=== PATIENT | female | born 1970 | race Caucasian/White ===

== ENCOUNTER 2021-09-08 01:08 | Outpatient (CLI) | payer BC, SELFPAY ==
[2021-09-08 12:57] LABS: Source Nasal/Nares
[2021-09-08 17:42] LABS: COVID-19 PCR Negative (Negative)
== END 2021-09-08 01:09 | disposition home or self-care (01) ==
LOC: LBO 01:08
PROVIDERS: PCP Naturopath; Visit Provider Surgery
DX: Z20.822 Contact with and (suspected) exposure to COVID-19 (principal)
CPT/HCPCS: 87635

== ENCOUNTER 2021-09-11 08:52 | Day surgery (SDC) | payer BC, SELFPAY ==
--- NOTE | 2021-09-11 06:35 | W.COLOREPORT ---
Colonoscopy Report Date of procedure: 09/11/21 Pre-op diagnosis general: Colon Cancer Screening Post-op diagnosis procedure note: same Procedure: Colonoscopy Surgeon: Nydia Vargas Anesthesia Type: General:No Airway Estimated blood loss (mL): 0 Pathology: none sent Complications: None Disposition: same day Indications: The patient is here for her first? Colonoscopy pre-op. She has no family history of colon cancer. Patient describes a history of irritable bowel disease, with her bowel habits frequently changing between diarrhea and constipation. However, since 06/2020 following a laparoscopic hysterectomy she describes having difficulties evacuating a BM. After passing stool she describes tenesmus. Patient has had numerous abdominal surgeries in the past as described above, concern for possible adhesions.? CT scan with contrast from 07/31/2020 did not note any abnormal abdominal findings. Of note a 5mm right lower lobe pulmonary nodule was described. Abdominal US from 06/23/2020 was performed, no acute abnormalities were identified. Patient also previously had a gastric emptying study on 06/03/2020 for early satiety. The impression of this exam was normal gastric emptying. -Discussed colonoscopy bowel prep as well as the procedure. Discussed possible complications of the procedure to include bleeding, pain, perforation, missed small lesion/polyp, sore throat, aspiration and adverse reaction to the medications. Questions were answered to patient?s satisfaction. No guarantees were implied or given.? Prep: Miralax/Dulcolax Procedure Start Time: 11:17 Procedure End Time: 11:37 Retraction Time: 6 minutes Findings: Normal colon Procedure Description: After informed consent was obtained the patient was taken to the procedure room and placed in a left decubitous position. Monitors were applied and a time out was done. The patients name, date of , procedure, allergies to medications and metal in their body was reviewed. The patient was then sedated. Once sedated and comfortable a rectal exam was done. External exam was normal. Internal exam revealed a normal sphincter tone and no palpable masses. The scope was then introduced and retro-flexed. No internal hemorrhoids, polyps or masses were identified on retro-flexion. The scope was then advanced to the cecum with some difficulty due to a tortuous colon. The ileocecal vlave and appendiceal orifice were identified. The prep was good. The scope was then slowly retracted over 6 minutes back into the rectum. There were no polyps and no diverticulosis noted. The scope was removed and the patient was woken up and taken back to Same day surgery in stable condition. The patient tolerated the procedure well and there were no immediate complications. Follow up: The patient should follow up in 10 years unless they develop changes in bowel habits or other new gastrointestinal complaints.
--- NOTE | 2021-09-11 06:37 | PDOC.DSDIS_ITS ---
Discharge Plan Disposition Patient Disposition: HOME Condition: Good Discharge Details Reason For Visit: Colonoscopy Attending Provider: Nydia Vargas Primary Care Provider: Brian Melendez Home Meds and New Rx's Prescriptions: Continued cholecalciferol (vitamin D3) 125 mcg (5,000 unit) capsule 125 mcg PO DAILY 0RF ascorbic acid (vitamin C) 500 mg capsule 500 mg PO DAILY 0RF vitamin K2 45 mcg capsule 45 mcg PO DAILY 0RF naltrexone 4.5 mg capsule 1.5 mg PO HS 0RF Label Comments: Medication prescribed by Payton Desai from [facility]. 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] 60 mg tablet 60 mg PO DAILY 0RF Label Comments: 09/01/21 patient currently reports she is taking this dose.SRAVANTHI Yin Rx Instructions: dosage decrease Discontinued polyethylene glycol 3350 17 gram/dose powder 238 g PO ONCE Qty: 238 0RF Rx Instructions: take per colonoscopy instructions bisacodyl [Dulcolax (bisacodyl)] 5 mg tablet,delayed release (DR/EC) 5 mg PO ONCE Qty: 4 0RF Rx Instructions: take per colonoscopy instructions Discharge Instructions Additional Instructions: Findings: Normal colonoscopy Follow up: 10 years Please call if you develop: fevers >101.5 Nausea or Vomiting Abdominal pain that is not transient Rectal bleeding that is more then a tbsp A hard abdomen and inability to pass gas DAY SURGERY UNIT POST ENDOSCOPY INSTRUCTIONS Instructions for everyone who is given Anesthesia: For your safety, please do the following for the next 24 Hours: a. Do not drive or operate dangerous equipment b. Do not drink alcohol beverages or use any recreational drugs for the first 24 hours or while taking pain medications. The medications in your body may have a reaction that can be dangerous. c. Do not make any important decisions or sign any important papers 1. Generally there are no restrictions on your activity after a day or so has gone by, but you may feel a bit fatigued for a few days. 2. After you arrive home you may have a light meal and return to a normal diet as you can tolerate it without feeling sick to your stomach. 3. After surgery, you may feel pain or discomfort. This should be only transient, but if it persists please contact your doctor. 4. If there are any questions regarding the findings of your procedure, please feel free to contact your doctor. 6. If you are unable to contact your doctor with a problem, contact the hospital at [phone]. 7. Continue all your regular medications unless directed otherwise. I understand the above instructions and have no questions. Signature of Patient or Responsible Adult Escort Date/Time Name of Responsible Adult Escort Signature of Nurse Date/Time Activity:: Activity as Tolerated Diet:: As Tolerated Discharge Orders Discharge Orders: Discharge Order (Routine); Ordered 09/11/21 Ordered By: Nydia Vargas
[2021-09-11 08:55] VITALS: BP 113/81; PULSE 89; RESP 16; TEMP 36.4; O2SAT 99
[2021-09-11] MEDS: Lactated Ringers 1,000 ML 80 ML IV (09:50)
--- NOTE | 2021-09-11 11:09 | ANES.PREOP_ITS ---
General Info Date of Service Date Performed: 09/11/21 Height: 5 ft 2 in Weight: 63.3 kg Body Mass Index (BMI): 25.5 Surgical Procedure: Operation Date: 09/11/21 10:35 Proposed Procedure Side Surgeon p Radha Vargas MD Meds Allergies and Home Medications Allergies Allergy/AdvReac Type Severity Reaction Status Date / Time amoxicillin Allergy Severe I makes Verified 09/11/21 08:32 any virus I have stronger flavoxate [From [facility]] Allergy Severe Hives, SOB Verified 09/11/21 08:32 Home Medication Medication Instructions Recorded albuterol sulfate 90 mcg/actuation 2 puff INHALATION BID PRN g 08/29/21 aerosol inhaler fluticasone propionate 110 2 puff INHALATION BID PRN 08/29/21 mcg/actuation HFA aerosol inhaler (Flovent HFA) ascorbic acid (vitamin C) 500 mg 500 mg PO DAILY 09/01/21 capsule bisacodyl 5 mg tablet,delayed 5 mg PO ONCE #4 tab 09/01/21 release (Dulcolax (bisacodyl)) cholecalciferol (vitamin D3) 125 125 mcg PO DAILY 09/01/21 mcg (5,000 unit) capsule naltrexone 1.5 mg PO HS 09/01/21 polyethylene glycol 3350 17 238 g PO ONCE #238 g 09/01/21 gram/dose oral powder thyroid (pork) 60 mg tablet ([employer] 60 mg PO DAILY 09/01/21 Thyroid) vitamin K2 45 mcg capsule 45 mcg PO DAILY 09/01/21 Current Visit Medications: Current Medications Generic Name Dose Route Start Last Admin Trade Name Freq PRN Reason Stop Dose Admin Hyoscyamine Sulfate 0.125 mg 09/11/21 06:37 Hyoscyamine 0.125 Mg Sl/Oral/Chew SL DIRECTED PRN Ringer's Solution 1,000 mls @ 80 mls/hr 09/11/21 06:00 09/11/21 09:50 IV 10/08/21 23:59 80 mls/hr INFUSION CLAU Administration IV Miscellaneous Supplies 1 each 09/11/21 06:00 Iv Access IV 10/08/21 23:59 DIRECTED CLAU Ondansetron HCl 4 mg 09/11/21 06:37 Ondansetron 4 Mg/2 Ml Vial IVP Q4H PRN PRN Nausea / Vomiting Sodium Chloride 0 ml 09/11/21 06:00 Normal Saline Flush 10 Ml Syr IV 10/08/21 23:59 PRN PRN Sodium Chloride 0 ml 09/11/21 06:00 Normal Saline 10 Ml Vial IJ 10/08/21 23:59 DIRECTED PRN Sterile Water 0 ml 09/11/21 06:00 Water,Injection,Sterile 10 Ml Vial IJ 10/08/21 23:59 DIRECTED PRN PFSH Active Problems Active Problems: Problem Status Onset Code Iron deficiency anemia D50.9 Screening for colon cancer Z12.11 Medical History Medical History Adult attention deficit disorder Anxiety Chronic interstitial cystitis Chronic sinusitis Daytime somnolence Fibromyalgia longstanding. manifests as N/V. Benito's thyroiditis pt. states she has swings from hyperthyroid to hypothyroid Hormone replacement therapy Rx by Dr. Velasquez. Hot flashes 07/2020. Solitary ovary remained after LAVH. Hyperthyroidism subclinical. Onset 2017. Insomnia Irritable bowel syndrome with diarrhea Lung nodule Obstructive sleep apnea syndrome in adult 01/2020 settings scanned into EMR with [facility] records. Palpitations Perimenopausal Posttraumatic stress disorder Surgical History Surgical History H/O breast biopsy 1999. Benign. H/O cystoscopy 1997,1998,1999 H/O laparoscopy 1998, Diagnostic for endometriosis H/O rhinoplasty History of delivery 1997,1996. S/P laparoscopic hysterectomy 07/13/20. bilateral salpingectomy, R oophorectomy, uterosacral vaginal vault suspension. Tobacco Smoking/Tobacco Use Status: Former Tobacco Use Alcohol Alcohol Intake: never Substance Use Substance use type: does not use Prental History History 2 Para 2 Hx # Term Pregnancies 2 Multiple births Hx # Pregnancies Ectopic pregnancies AB induced Hx Number of Living Children 2 AB spontaneous Vital Signs and Lab Results Vital Signs Most Recent Vital Signs in EMR: Most Recent Vital Signs Temp Pulse Resp BP Pulse Ox 36.4 C L 89 16 113/81 99 09/11/21 08:55 09/11/21 08:55 09/11/21 08:55 09/11/21 08:55 09/11/21 08:55 Lab Results Blood Type / Crossmatch: No Data to Display Complete Blood Count: No Data to Display Complete Metabolic Panel: No Data to Display Liver Function Panel: No Data to Display Coagulation Panel: No Data to Display Cardiac Panel: No Data to Display Arterial Blood Gas: No Data to Display Venous Blood Gas: No Data to Display Pancreas Panel: No Data to Display Thyroid Panel: No Data to Display Infectious Disease: Coronavirus (COVID-19)(PCR) Negative (Negative) 09/08/21 09:37 09/08/21 Coronavirus 2019 Source Nasal/Nares 09/08/21 09:37 09/08/21 Blood Cultures: No Data to Display Toxicology Panel: No Data to Display Panel: No Data to Display Anesthesia Assessment and Plan Anesthesia History Personal History: PONV Family History: No Family History of Anesthesia Complications Exercise Tolerance Exercise Tolerance: Metabolic Equivalents>4 Pertinent Negatives Pertinent Negatives: No Symptoms of GERD Cardiac & Pulmonary Exam Cardiac Exam: Normal S1/S2 Heart Sounds Pulmonary Exam: Clear Bilateral Breath Sounds Implantable Cardiac Device Does patient have a Pacemaker or an ICD?: No Airway Exam Known Difficult Airway: No Mallampati Class: 2 Mouth Opening: Normal (> 3cm) Thyromental Distance: Greater than 3 cm Neck Range of Motion: Full ROM Neck Circumference: Normal Teeth Condition: Normal Dentition ASA Classification ASA Score: ASA 3 Emergency Case?: No NPO Status NPO Status: NPO Clears >2 hours, Solids >8 hours Status Status: Negative HCG Anesthesia Plan Resuscitation Status: Full Code Anesthesia Technique: General Anesthesia Airway Planned: Natural Airway Monitors Used: Standard Monitors
[2021-09-11 11:11] VITALS: BMI 25.5
[2021-09-11 11:45] VITALS: BP 95/49; PULSE 74; RESP 14; TEMP 36.5; O2SAT 99
--- NOTE | 2021-09-11 15:14 | W.ANESPOSTOP ---
Postoperative Evaluation Date, Time and Location Date Performed: 09/11/21 Time Performed: 11:45 Patient Location: Day Surgery Unit Vital Signs Most Recent Imported Vital Signs: Most Recent Vital Signs Temp Pulse Resp BP Pulse Ox 36.5 C 74 14 95/49 L 99 09/11/21 11:45 09/11/21 11:45 09/11/21 11:45 09/11/21 11:45 09/11/21 11:45 Pain Score Most Recent Pain Score: Most Recent Pain Score Pain Level 0 09/11/21 11:45 Assessment Mental Status: Awake (Alert & Oriented to Patient Baseline) Airway and Respiratory Function: Patent airway with normal (patient baseline) respiratory exam Cardiovascular Function: Hemodynamically Stable Hydration Status: Adequately Hydrated Nausea & Vomiting: No Nausea or Vomiting Pain: Pt. Denies Any Pain Peripheral Nerve Block: Patient did not receive a nerve block Postoperative Comments:: Seen earlier in DSU
== END 2021-09-11 12:37 | disposition home or self-care (01) ==
LOC: SUR 08:53
PROVIDERS: PCP Naturopath; Visit Provider Surgery
PROC: 0DJD8ZZ Inspection of Lower Intestinal Tract, Via Natural or Artificial Opening Endoscopic (ICD-10-PCS; CPT 45378; principal; 2021-09-11 10:30)
DX: Z12.11 Encounter for screening for malignant neoplasm of colon (principal); D50.9 Iron deficiency anemia, unspecified; M79.7 Fibromyalgia; K58.2 Mixed irritable bowel syndrome
CPT/HCPCS: 45378; J2405

== ENCOUNTER 2023-03-12 04:32 | Outpatient (CLI) | payer BC, SELFPAY ==
[2023-03-13 19:17] LABS: Estradiol 22 pg/mL (See Note); Progesterone 0.3 ng/mL (See Table)
[2023-03-13 21:51] LABS: FSH 37.8 mIU/mL (See Note)
[2023-03-16 13:39] LABS: Testosterone, Total 18 ng/dL (8-60)
== END 2023-03-12 04:33 | disposition home or self-care (01) ==
PROVIDERS: PCP Naturopath; Visit Provider Naturopath
DX: N95.1 Menopausal and female climacteric states (principal)
CPT/HCPCS: 36415; 84403; 82670; 83001; 84144

== ENCOUNTER → 2023-04-17 01:22 | Outpatient (CLI) | payer BC, SELFPAY ==
--- NOTE | 2023-04-17 17:00 | DI.MAMMO_ITS ---
Exam(s) MAMMO SCREENING EXAM: MAMMO SCREENING CLINICAL HISTORY: screening TECHNIQUE: Bilateral full field digital CC and MLO mammographic images were obtained with 3D tomosyn thesis and utilizing computer aided detection (CAD). COMPARISON: Available for comparison. FINDINGS: Masses/Architectural Distortion: There is a 6 mm nodule in the outer right breast on the craniocaudad view. No suspicious areas of architectural distortion are seen. Microcalcifications: No suspicious pleomorphic-type are seen. Skin Thickening/Nipple Retraction: None. IMPRESSION: 1. 6 mm nodule in the outer right breast on the craniocaudad view. 2. Further evaluation with a spot compression view and a limited right breast ultrasound are recommen ded. BI-RADS Category 0 - Assessment Incomplete: Need additional imaging evaluation Breast Density - Category B - Scattered areas of fibroglandular density Breast density category C or D implies that the patient has dense breast tissue. Dense breast tissue is very common and is not abnormal but dense breast tissue can make it harder to find cancer on a ma mmogram. Also, dense breast tissue may increase their breast cancer risk. This information about the result of the mammogram report was provided to the patient to raise their awareness. Use this report when you speak with the patient about their risks for breast cancer, which includes their family hist ory. At that time, you may recommend for more screening tests (Ultrasound or MRI) as they might be us eful based on their risk. A negative radiographic report should not delay biopsy if a dominant or clinically suspicious mass is present. Up to ten percent of cancers are not identified on mammography. A negative report may reinforce clinical impression. Adenosis and dense breasts may obscure an underlying neoplasm. False positive reports average 6 to 10%. Patient will receive a letter notifying them of these results.
== END ==
PROVIDERS: PCP Naturopath; Visit Provider Obstetrics & Gynecology Gynecology
DX: Z12.31 Encounter for screening mammogram for malignant neoplasm of breast (principal); N63.13 Unspecified lump in the right breast, lower outer quadrant
CPT/HCPCS: 77063; 77067

== ENCOUNTER → 2023-04-29 04:00 | Outpatient (CLI) | payer BC, SELFPAY ==
--- NOTE | 2023-04-29 | DI.MAMMO_ITS ---
Exam(s) MG MAMMO SCREEN CALL BACK UNI US BREAST RT LIMITED EXAM: MG MAMMO SCREEN CALL BACK UNI CLINICAL HISTORY: F/U MAMMO, 6 MM NODULE RT BREAST. TECHNIQUE: Craniocaudal and mediolateral oblique spot compression digital Mammography views of the r ightbreast with Tomosynthesis and right breast ultrasound. COMPARISON: MG MG MAMMO STACEY SCREENING BILAT-M2 from 04/05/2017 MG MG MAMMO STACEY DIAGNOSTIC LT-M2 from 04/10/2017 MG MG MAMMO STACEY DIAGNOSTIC LT-M2 from 11/08/2017 MG MG MAMMO STACEY DIAGNOSTIC BILAT-M2 from 10/08/2018 MG MG MAMMO STACEY SCREENING BILAT-M2 from 06/14/2020 MG MG MAMMO STACEY SCREENING BILAT-M2 from 07/17/2021 MG MG MAMMO SCREENING from 04/17/2023 US US BREAST RT LIMITED from 04/29/2023 FINDINGS: Mammography/Tomosynthesis: Masses/Architectural Distortion: Small circumscribed nodule lateral central right breast. Microcalcifictions: No suspicious pleomorphic-type are seen. Skin Thickening/Nipple Retraction: None. Right breast US: Echotexture: Normal appearance of the glandular tissue. Shadowing: No suspicious foci. Cyst: 5 by 5 x 3 millimeter cyst 9 o'clock position 3 cm from the nipple. Adjacent 6 x [address] cyst. Solid lesions: None seen. Ductal dilation: None. IMPRESSION: 1. No evidence of malignancy is noted. 2. Unless there is more urgent need, follow-up screening mammography is recommended, as per [place] [employer] guidelines. 3. The findings were discussed with the patient on the date of the examination. BI-RADS Category 2 - Benign Findings Breast Density - Category B - Scattered areas of fibroglandular density A negative radiographic report should not delay biopsy if a dominant or clinically suspicious mass is present. Up to ten percent of cancers are not identified on mammography. A negative report may reinforce clinical impression. Adenosis and dense breasts may obscure an underlying neoplasm. False positive reports average 6 to 10%. Patient will receive a letter notifying them of these results.
== END ==
PROVIDERS: PCP Naturopath; Visit Provider Obstetrics & Gynecology Gynecology
DX: Z12.31 Encounter for screening mammogram for malignant neoplasm of breast (principal); N63.15 Unspecified lump in the right breast, overlapping quadrants
CPT/HCPCS: 76642; 77063; 77067

== ENCOUNTER 2023-06-12 10:30 | Outpatient (REF) | payer BC, SELFPAY ==
--- OUTSIDE RECORDS SUMMARY | 2023-06-12 10:32 | XMS_ITS | Continuity of Care Document ---
Author Name Unknown Organization [facility] Address [address] [place] [address] Care Team Providers Care Bridge Instructor Name Role Phone Cisco Zhu Primary Care Physician Encounter REPLACED BY [facility] [id number] Date(s): 06/18/22 - 06/18/[address] [address] Discharge Disposition: Home or Self Care Attending Physician: Brian Melendez ND Admitting Physician: Brian Melendez ND Referring Physician: Brian Melendez ND Allergies, Adverse Reactions, Alerts Substance Reaction Severity Status amoxicillin Other Unknown Active flavoxATE Urticaria Unknown Active Assessment and Plan Diagnostic Tests Pending * Carol-Kohli Virus Profile, Reyna MALCOLM 06/18/22 Immunizations Given and Recorded Vaccine Date Status Refusal Reason tetanus/diphth/pertuss (Tdap) adult/adol 07/22/09 Recorded Results Laboratory List Name Date T3, Free [facility] 06/18/22 T4 06/18/22 Thyroid Stimulating Hormone 06/18/22 Most recent to oldest [Reference Range]: 1 T4 [4.7-13.3 mcg/dL] 8.6 mcg/dL (06/18/22 4:04 PM) TSH [0.358-3.740 mcIntlUnit/mL] 1.658 mc IntlUnit/mL (06/18/22 4:04 PM) T3, Free [facility] [2.8-5.3 pg/mL] 3.2 pg/mL 1 *NA* (06/18/22 4:04 PM) 1Result Comment: Test performed or referred by The [address] [address] Social History Social History Type Response Sex Female Patient Care team information Personnel Name: Cisco Zhu MD Address: Address: [address] [address]- [place]
--- OUTSIDE RECORDS SUMMARY | 2023-06-12 10:32 | XMS_ITS | Continuity of Care Document ---
Author Name Unknown Organization [facility] Address [address] [place] [address] Care Team Providers Care Suction Plate Roller Hand Name Role Phone Cisco Zhu Primary Care Physician Encounter [facility] [id number] Date(s): 04/22/23 - 04/22/[address] [address] Discharge Disposition: Home or Self Care Attending Physician: Lynsey Miguel MD Admitting Physician: Lynsey Miguel MD Referring Physician: Lynsey Miguel MD Allergies, Adverse Reactions, Alerts Substance Reaction Severity Status amoxicillin Other Unknown Active flavoxATE Urticaria Unknown Active Immunizations Given and Recorded Vaccine Date Status Refusal Reason tetanus/diphth/pertuss (Tdap) adult/adol 07/22/09 Recorded Medications albuterol 0 Refill(s) Start Date: 07/11/22 Status: Ordered Problem List Condition Confirmation Course Effective Dates Status Health St atus Informant Head pain Confirmed Active Palpitations Confirmed Active Results Laboratory List Name Date Automated Diff 04/22/23 CBC w/ Diff 04/22/23 Comprehensive Metabolic Panel (CMP) 04/22 Magnesium Level 04/22/23 TSH w/ Rflx to Free T4 04/22/23 Troponin-I 04/22/23 Vitamin B12 Level 04/22/23 Most recent to oldest [Reference Range]: 1 WBC [5.0-10.0 x10^3/mcL] 7.8 x10^3/mcL (04/22/23 2:25 PM) RBC [4.1-5.3 x10^6/mcL] 4.5 x10^6/mcL (04/22/23 2:25 PM) Neutro Auto [40.0-75.0 %] 60.1 % (04/22/23 2:25 PM) Lymph Auto [20.0-50.0 %] 32.7 % (04/22/23 2:25 PM) [place] Auto [2.0-15.0 %] 4.0 % (04/22/23 2:25 PM) Basophil Auto [0.0-1.0 %] 0.9 % (04/22/23 2:25 PM) BUN [7-18 mg/dL] 15 mg/dL (04/22/23 2:25 PM) Glucose Level [74-106 mg/dL] 83 mg/dL (04/22/23 2:25 PM) Potassium Level [3.5-5.1 mmol/L] 4.1 mmo l/L (04/22/23 2:25 PM) MCV [80.0-96.0 fL] 92.1 fL (04/22/23 2:25 PM) AST [15-37 unit/L] 14 unit/L *LOW* (04/22/23 2:25 PM) ALT [14-59 unit/L] 25 unit/L (04/22/23 2:25 PM) MCHC [31.0-35.0 g/dL] 32.4 g/dL (04/22/23 2:25 PM) Troponin-I [0.0-51.4 pg/mL] <5.0 pg/mL (04/22/23 2:25 PM) Sodium Level [136-145 mmol/L] 139 mmol/L (04/22/23 2:25 PM) Hct [37.0-47.0 %] 41.7 % (04/22/23 2:25 PM) Calcium Level [8.5-10.1 mg/dL] 9.1 mg/dL (04/22/23 2:25 PM) Albumin Level [3.4-5.0 g/dL] 3.7 g/dL (04/22/23 2:25 PM) Protein Total [6.4-8.2 g/dL] 7.6 g/dL (04/22/23 2:25 PM) MCH [26.0-32.0 pg] 29.8 pg (04/22/23 2:25 PM) Magnesium Level [1.8-2.4 mg/dL] 1.8 mg/d L (04/22/23 2:25 PM) Neutro Absolute 4.7 x10^3/mcL *NA* (04/22/23 2:25 PM) Bilirubin Total [0.2-1.0 mg/dL] 0.2 mg/d L (04/22/23 2:25 PM) Hgb [12.0-16.0 g/dL] 13.5 g/dL (04/22/23 2:25 PM) B12 Level [193-986 pg/mL] 511 pg/mL (04/22/23 2:25 PM) Alk Phos [46-146 unit/L] 66 unit/L (04/22/23 2:25 PM) Platelets [130-450 x10^3/mcL] 328 x10^3/ mcL (04/22/23 2:25 PM) CO2 [21-32 mmol/L] 29 mmol/L (04/22/23 2:25 PM) TSH [0.358-3.740 mcIntlUnit/mL] 0.976 mc IntlUnit/mL (04/22/23 2:25 PM) eGFR Non-AA [>=60] 103 (04/22/23 2:25 PM) eGFR AA [>=60] 103 (04/22/23 2:25 PM) Chloride Level [98-107 mmol/L] 103 mmol/ L (04/22/23 2:25 PM) RDW-CV [11.5-14.5 %] 13.3 % (04/22/23 2:25 PM) Imm Gran Auto [0.0-0.9 %] 0.1 % (04/22/23 2:25 PM) Creatinine Level [0.55-1.02 mg/dL] 0.71 mg/dL (04/22/23 2:25 PM) Eos, Auto [1.0-6.0 %] 2.2 % (04/22/23 2:25 PM) Social History Social History Type Response Tobacco Never tobacco user T obacco Use:. Sex Female Patient Care team information Care Team Personnel Name: Cisco Zhu MD Position: Physician Member Role: Primary Care Physician Address: Address: [address] [address]- Care Team Related Persons Name: BENITO PASTOR
--- OUTSIDE RECORDS SUMMARY | 2023-06-12 10:32 | XMS_ITS | Continuity of Care Document ---
Author Name Unknown Organization [facility] Address [address] [place] [address] Care Team Providers Care Fire Support Specialist Name Role Phone Cisco Zhu Primary Care Physician Encounter [facility] [id number] Date(s): 05/03/23 - 05/03/[address] [address] Encounter Diagnosis Heart palpitations(Discharge Diagnosis) - 05/03/23 Discharge Disposition: Home or Self Care Attending [...] Head pain Confirmed Active Palpitations Confirmed Active Social History Social History Type Response Tobacco Never tobacco user T obacco Use:. Sex Female Ambulatory cardiac rhythm monitor (Holter) study * Dara Anaya M: PERFORM Event Display: Holter Monitor Authored Date: [id number] XIOMARA JEROME 1970 [id number] Patient placed on Holter Monitor 48 Hourson 05/03/2023 by Joaquina Edward RRT. Electronically Signed on 05/03/23 03:41 PM Dara Anaya Patient Care team information Care Team Personnel Name: Cisco Zhu MD Position: Physician Member Role: Primary Care Physician Address: Address: [place] [address]- Care Team Related Persons Name: BENITO PASTOR
--- OUTSIDE RECORDS SUMMARY | 2023-06-12 10:33 | XMS_ITS | Continuity of Care Document ---
Author Name Unknown Organization [facility] Address [address] [place] [address] Care Team Providers Care Marketing Specialist Name Role Phone Cisco Zhu Primary Care Physician [phone] Encounter [facility] [id number] Date(s): 07/11/22 - 07/11/[address] [address] Encounter Diagnosis Shortness of breath(Discharge Diagnosis) - 07/11/22 Discharge Disposition: Home or Self Care Attending Physician: Sabina De La Garza MD Admitting Physician: Sabina De La Garza MD Allergies, Adverse Reactions, Alerts Substance Reaction Severity Status amoxicillin Other Unknown Active flavoxATE Urticaria Unknown Active Functional Status 07/11/22 Family Member Travel History No recent t ravel Recent Travel History No recent travel Other exposure to Infectious Disease Non e Immunizations Given and Recorded Vaccine Date Status Refusal Reason tetanus/diphth/pertuss (Tdap) adult/adol 07/22/09 Recorded Medications Advair Diskus 100 mcg-50 mcg inhalation powder 0 Refill(s) Start Date: 07/11/22 Status: Ordered albuterol 0 Refill(s) Start Date: 07/11/22 Status: Ordered predniSONE 10 mg oral tablet 50 mg = 5 tab, Oral, Daily, # 20 tab, 0 Refill(s), Pharmacy: [id number], 157, cm, 07/11/22 15:51:00 EST, Height/Length Dosing, 70, kg, 07/11/22 15:51:00 EST, Weight Dosing Start Date: 07/12/22 Stop Date: 07/16/22 Status: Ordered Results Laboratory List Name Date CBC w/ Diff 07/11/22 Comprehensive Metabolic Panel 07/11/22 D-Dimer 07/11/22 NT- Pro BNP 07/11/22 Troponin-I 07/11/22 Free T4 07/11/22 Automated Diff 07/11/22 Most recent to oldest [Reference Range]: 1 WBC [5.0-10.0 x10^3/mcL] 8.1 x10^3/mcL (07/11/22 4:24 PM) RBC [4.1-5.3 x10^6/mcL] 4.2 x10^6/mcL (07/11/22 4:24 PM) Neutro Auto [40.0-75.0 %] 58.6 % (07/11/22 4:24 PM) Lymph Auto [20.0-50.0 %] 32.7 % (07/11/22 4:24 PM) [place] Auto [2.0-15.0 %] 5.9 % (07/11/22 4:24 PM) Basophil Auto [0.0-1.0 %] 0.7 % (07/11/22 4:24 PM) BUN [7-18 mg/dL] 8 mg/dL (07/11/22 4:24 PM) Glucose Level [74-106 mg/dL] 78 mg/dL (07/11/22 4:24 PM) Potassium Level [3.5-5.1 mmol/L] 3.4 mmo l/L *LOW* (07/11/22 4:24 PM) MCV [80.0-96.0] 93.6 (07/11/22 4:24 PM) T4 Free [0.76-1.46 ng/dL] 0.85 ng/dL (07/11/22 4:24 PM) AST [15-37 unit/L] 21 unit/L (07/11/22 4:24 PM) ALT [14-59 unit/L] 18 unit/L (07/11/22 4:24 PM) MCHC [31.0-35.0 g/dL] 33.1 g/dL (07/11/22 4:24 PM) Troponin-I [0.0-51.4 pg/mL] 5.2 pg/mL (07/11/22 4:24 PM) Sodium Level [136-145 mmol/L] 140 mmol/L (07/11/22 4:24 PM) Hct [37.0-47.0 %] 39.6 % (07/11/22 4:24 PM) Calcium Level [8.5-10.1 mg/dL] 9.0 mg/dL (07/11/22 4:24 PM) Albumin Level [3.4-5.0 g/dL] 3.9 g/dL (07/11/22 4:24 PM) Protein Total [6.4-8.2 g/dL] 7.8 g/dL (07/11/22 4:24 PM) MCH [26.0-32.0 pg] 31.0 pg (07/11/22 4:24 PM) Neutro Absolute 4.7 x10^3/mcL *NA* (07/11/22 4:24 PM) Bilirubin Total [0.2-1.0 mg/dL] 0.3 mg/d L (07/11/22 4:24 PM) Hgb [12.0-16.0 g/dL] 13.1 g/dL (07/11/22 4:24 PM) Alk Phos [46-146 unit/L] 85 unit/L (07/11/22 4:24 PM) Platelets [130-450 x10^3/mcL] 269 x10^3/ mcL (07/11/22 4:24 PM) CO2 [21-32 mmol/L] 29 mmol/L (07/11/22 4:24 PM) eGFR Non-AA [>=60] 85 (07/11/22 4:24 PM) eGFR AA [>=60] 85 (07/11/22 4:24 PM) NT-proBNP [0-125 pg/mL] 185 pg/mL *HI* (07/11/22 4:24 PM) Chloride Level [98-107 mmol/L] 103 mmol/ L (07/11/22 4:24 PM) RDW-CV [11.7-17.0 %] 13.2 % (07/11/22 4:24 PM) Imm Gran Auto [0.0-0.9 %] 0.2 % (07/11/22 4:24 PM) Creatinine Level [0.55-1.02 mg/dL] 0.84 mg/dL (07/11/22 4:24 PM) D Dimer, (Quant.) [0.00-0.50 mg/L] 0.69 mg/L *HI* (07/11/22 4:24 PM) Eos, Auto [1.0-6.0 %] 1.9 % (07/11/22 4:24 PM) Vital Signs Most recent to oldest [Reference Range]: 1 2 Temperature Temporal Artery [36-38 Deg C ] 36.3 Deg C (07/11/22 3:44 PM) Peripheral Pulse Rate [60-100 bpm] 77 bp m (07/11/22 7:26 PM) 100 bpm (07/11/22 3:44 PM) Respiratory Rate [12-24 br/min] 16 br/mi n (07/11/22 7:26 PM) 20 br/min (07/11/22 3:44 PM) Blood Pressure [90-140/60-90 mmHg] 124/9 1mmHg (07/11/22 7:26 PM) 141/87mmHg *HI* (07/11/22 3:44 PM) Weight Dosing 70.00 kg (07/11/22 3:51 PM) Weight Estimated 70.00 kg (07/11/22 3:44 PM) Height/Length Dosing 157.000 cm (07/11/22 3:51 PM) Height/Length Estimated 157.000 cm (07/11/22 3:44 PM) Social History Social History Type Response Tobacco Never tobacco user T obacco Use:. Sex Female Hospital Discharge Instructions Patient Education 07/11/2022 18:08:51 Shortness of Breath, Adult Shortness of Breath, Adult Shortness of breath is when a person has trouble breathing enough air or when a person feels like she or he is having trouble breathing in enough air. Shortness of breath could be a sign of a medicalproblem. Follow these instructions at home: ??? Pay attention to any changes in your symptoms. ??? Do not use any products that contain nicotine or tobacco, such as cigarettes, e-cigarettes, andchewing tobacco. ??? Do not smoke. Smoking is a common cause of shortness of breath. If you need help quitting, ask your health care provider. ??? Avoid things that can irritate your airways, such as: ??? Mold. ??? Dust. ??? Air pollution. ??? Chemical fumes. ??? Things that can cause allergy symptoms (allergens), if you have allergies. ??? Keep your living space clean and free of mold and dust. ??? Rest as needed. Slowly return to your usual activities. ??? Take yntd-ppl-pztecdr and prescription medicines only as told by your health care provider. This includes oxygen therapy and inhaled medicines. ??? Keep all follow-up visits as told by your health care provider. This is important. Contact a health care provider if: ??? Your condition does not improve as soon as expected. ??? You have a hard time doing your normal activities, even after you rest. ??? You have new symptoms. Get help right away if: ??? Your shortness of breath gets worse. ??? You have shortness of breath when you are resting. ??? You feel light-headed or you faint. ??? You have a cough that is not controlled with medicines. ??? You cough up blood. ??? You have pain with breathing. ??? You have pain in your chest, arms, shoulders, or abdomen. ??? You have a fever. ??? You cannot walk up stairs or exercise the way that you normally do. These symptoms may represent a serious problem that is an emergency. Do not wait to see if the symptoms will go away. Get medical help right away. Call your local emergency services (911 in the [place] Do not drive yourself to the hospital. Summary ??? Shortness of breath is when a person has trouble breathing enough air. It can be a sign of a medical problem. ??? Avoid things that irritate your lungs, such as smoking, pollution, mold, and dust. ??? Pay attention to changes in your symptoms and contact your health care provider if you have a hard time completing daily activities because of shortness of breath. This information is not intended to replace advice given to you by your health care provider. Make sure you discuss any questions you have with your health care provider. Document Revised: 12/08/2018 Document Reviewed: 12/08/2018 [employer] Patient Education ?? 2021 [employer]. Follow Up Care 07/11/2022 15:43:58 With:Cisco Zhu MD Address: [facility] [address] [address]- When:1 week Emergency department Discharge instructions * Crotez Lamar MD: PERFORM Event Display: ED Discharge Information Authored Date: XIOMARA JEROME :1970 Age:52 years Sex:Female Visit Date:07/11/2022 Primary Care Physician: Cisco Zhu MD Discharge Instructions We would like to thank you for allowing us to assist you with your healthcare needs. The following includes patient education materials and information regarding your injury/illness. Diagnosis from Today's Visit Shortness of breath Discharge Vitals Temperature??(Temporal Artery) 97.3 ??F (36.3 ??C) Heart Rate??(Peripheral) 100 Respiratory Rate?? 20 Blood Pressure?? 141/87?? Height?? 61.81 in (157.000 cm) Weight??(Estimated) 154.35 lb (70.00 kg) Allergies amoxicillin??(Other) flavoxATE??(Urticaria) What to Do Next Instructions from Your Care Team Thank you??for coming to the emergency department today, it has been a pleasure to take care of you.?? Your CT scan was generally reassuring???the radiologist did not see signs of a residual pneumonia or blood clot in the lungs.?? They did see some very small lymph nodes in your left axilla/armpit that would recommend follow-up with your primary care physician for.?? Your??blood work looking for s igns of heart attack or heart failure were generally reassuring.?? Your cell counts and kidney function??were normal and your thyroid test was also within normal limits.?? We would recommend continuing your??medications as prescribed and we will try a prednisone burst for you??to help treat any residual asthma component to this. ??Please follow-up with your primary care doctor within the next week or so to ensure that you are improving??and return to the emergency department if you have any newor concerning symptoms including any??trouble breathing,??new chest pain, fever, abdominal pain, orany other symptoms or concern you. You Need to Schedule the Following Appointments Follow Up with??Cisco Zhu MD When:??Within 1 week Where: [facility] [address] [place] [address]- You were treated today on an emergency basis; it may be ward to contact your primary care provider to notify them of your visit today. You may have been referred to your regular doctor or a specialist, please follow up as instructed. If your condition worsens or you can't get in to see the doctor, contact the Emergency Department. Medications What How Much When Why Instructions Next Dose New predniSONE (predniSONE 10 mg oral tablet) 5 tab Oral (given by mouth) Every day Shortness of breath Duration: 4 Days Pickup at [id number] Unchanged albuterol Unchanged fluticasone-salmeterol (Advair Diskus 100 mcg-50 mcg inhalation powder) Pharmacy Information [facility] 4156: [address] [place] [address] [phone] Education Materials Shortness of Breath, Adult Shortness of breath is when a person has trouble breathing enough air or when a person feels like she or he is having trouble breathing in enough air. Shortness of breath could be a sign of a medicalproblem. Follow these instructions at home: ? Pay attention to any changes in your symptoms. ? Do not use any products that contain nicotine or tobacco, such as cigarettes, e- cigarettes, and chewing tobacco. ? Do not smoke. Smoking is a common cause of shortness of breath. If you need help quitting, ask yourhealth care provider. ? Avoid things that can irritate your airways, such as: ? Mold. ? Dust. ? Air pollution. ? Chemical fumes. ? Things that can cause allergy symptoms (allergens), if you have allergies. ? Keep your living space clean and free of mold and dust. ? Rest as needed. Slowly return to your usual activities. ? Take uiuz-xyq-tyntmat and prescription medicines only as told by your health care provider. This includes oxygen therapy and inhaled medicines. ? Keep all follow-up visits as told by your health care provider. This is important. Contact a health care provider if: ? Your condition does not improve as soon as expected. ? You have a hard time doing your normal activities, even after you rest. ? You have new symptoms. Get help right away if: ? Your shortness of breath gets worse. ? You have shortness of breath when you are resting. ? You feel light-headed or you faint. ? You have a cough that is not controlled with medicines. ? You cough up blood. ? You have pain with breathing. ? You have pain in your chest, arms, shoulders, or abdomen. ? You have a fever. ? You cannot walk up stairs or exercise the way that you normally do. These symptoms may represent a serious problem that is an emergency. Do not wait to see if the symptoms will go away. Get medical help right away. Call your local emergency services (911 in the [place] Do not drive yourself to the hospital. Summary ? Shortness of breath is when a person has trouble breathing enough air. It can be a sign of a medical problem. ? Avoid things that irritate your lungs, such as smoking, pollution, mold, and dust. ? Pay attention to changes in your symptoms and contact your health care provider if you have a hard time completing daily activities because of shortness of breath. This information is not intended to replace advice given to you by your health care provider. Make sure you discuss any questions you have with your health care provider. Document Revised: 12/08/2018 Document Reviewed: 12/08/2018 [employer] Patient Education ?? 2021 [employer] Tests Performed Lab Test Name Test Result Date/Time WBC 8.1 x10^3/mcL 07/11/2022 16:24 EST RBC 4.2 x10^6/mcL 07/11/2022 16:24 EST Hgb 13.1 g/dL 07/11/2022 16:24 EST Hct 39.6 % 07/11/2022 16:24 EST MCV 93.6 07/11/2022 16:24 EST MCH 31.0 pg 07/11/2022 16:24 EST MCHC 33.1 g/dL 07/11/2022 16:24 EST RDW-CV 13.2 % 07/11/2022 16:24 EST Platelets 269 x10^3/mcL 07/11/2022 16:24 EST Neutro Auto 58.6 % 07/11/2022 16:24 EST Lymph Auto 32.7 % 07/11/2022 16:24 EST [place] Auto 5.9 % 07/11/2022 16:24 EST Eos, Auto 1.9 % 07/11/2022 16:24 EST Basophil Auto 0.7 % 07/11/2022 16:24 EST Imm Gran Auto 0.2 % 07/11/2022 16:24 EST Neutro Absolute 4.7 x10^3/mcL 07/11/2022 16:24 EST D Dimer, (Quant.) 0.69 mg/L 07/11/2022 16:24 EST Sodium Level 140 mmol/L 07/11/2022 16:24 EST Potassium Level 3.4 mmol/L 07/11/2022 16:24 EST Chloride Level 103 mmol/L 07/11/2022 16:24 EST CO2 29 mmol/L 07/11/2022 16:24 EST Alk Phos 85 unit/L 07/11/2022 16:24 EST AST 21 unit/L 07/11/2022 16:24 EST ALT 18 unit/L 07/11/2022 16:24 EST BUN 8 mg/dL 07/11/2022 16:24 EST Glucose Level 78 mg/dL 07/11/2022 16:24 EST Creatinine Level 0.84 mg/dL 07/11/2022 16:24 EST eGFR AA 85 07/11/2022 16:24 EST eGFR Non-AA 85 07/11/2022 16:24 EST Calcium Level 9.0 mg/dL 07/11/2022 16:24 EST Protein Total 7.8 g/dL 07/11/2022 16:24 EST Albumin Level 3.9 g/dL 07/11/2022 16:24 EST Bilirubin Total 0.3 mg/dL 07/11/2022 16:24 EST Troponin-I 5.2 pg/mL 07/11/2022 16:24 EST NT-proBNP 185 pg/mL 07/11/2022 16:24 EST T4 Free 0.85 ng/dL 07/11/2022 16:24 EST Patient/Program Control Analyst Signature Patient Name:XIOMARA JEROME I have received this information and my questions have been answered. Patient/Program Control Analyst Name: Patient/Program Control Analyst Signature: Relationship to Patient: Witness Name/Signature: Date: Electronically Signed on: 07/11/2022 19:13 ESTSigned by:[facility] Emergency department Note * Scarlet Paniagua: PERFORM Event Display: ED Notes Authored Date: [id number] Patient Care team information Personnel Name: Cisco Zhu MD Address: Address: [address] [address]- [place]
[2023-06-14 09:02] LABS: IgE 405 IU/mL (<158)
== END 2023-06-12 10:31 | disposition home or self-care (01) ==
LOC: LBN 10:30
PROVIDERS: PCP Naturopath; Visit Provider Physician Assistant Surgical
DX: J45.909 Unspecified asthma, uncomplicated (principal)
CPT/HCPCS: 82785

== ENCOUNTER 2023-07-18 01:10 | Outpatient (CLI) | payer BC, SELFPAY ==
[2023-07-18] MEDS: Albuterol HFA 18 GM 200 PUFF INH IH (12:04)
[2023-07-18] MEDS: Methacholine 100 MG VIAL IH (12:04)
[2023-07-18] MEDS: Inhaler, Assist Device 1 EACH MC (12:04)
--- NOTE | 2023-07-18 14:08 | W.PFT ---
Date of service: 07/18/23 Time of Service: 10:15 Pulmonary Function Test Result Indications: Asthma Interpretation Spirometry: There is no airflow limitation. There was a 24% decrease in FEV1 with administration of 1 mg/mL methacholine. Lung Volumes: Normal lung volumes Diffusion Capacity: Normal diffusion Airway Pressure: Normal airways resistance Impression Normal baseline pulmonary function with a positive methacholine challenge Clinical Correlation therefore is recommended.
== END 2023-07-18 01:11 | disposition home or self-care (01) ==
LOC: RT 01:10
PROVIDERS: PCP Naturopath; Visit Provider Physician Assistant Surgical
DX: J45.998 Other asthma (principal); R94.2 Abnormal results of pulmonary function studies
CPT/HCPCS: 94060; 94070; 94726; 94729; 94010; J7674

== ENCOUNTER 2024-07-24 14:02 | Outpatient (CLI) | payer BC, SELFPAY ==
[2024-07-24 09:45] LABS: HCT 41.5 % (36.0-46.0); HGB 13.6 g/dL (11.2-15.7); MCH 30.6 pg (27.0-33.0); MCHC 32.8 % (32.0-36.0); MCV 93 fL (80-95); MPV 9.2 fL (8.0-11.0); Platelet Count 283 10^3/uL (130-400); RBC 4.45 10^6/uL (3.93-5.22); RDW 13.4 % (11.7-14.6); RDW-SD 45.8 fL; WBC 9.49 10^3/uL (4.4-10.8)
[2024-07-24 10:23] LABS: Anion Gap 9.5 mmol/L (3-11); BUN 14 mg/dL (7-18); CO2 29.5 mmol/L (21.0-32.0); CREATININE 0.8 mg/dL (0.55-1.02); Calcium 9.6 mg/dL (8.5-10.1); Chloride 102 mmol/L (98-107); Glucose 87 mg/dL (74-106); HCG Quant, Pregnancy 5 mIU/mL (1-3); Potassium 4.1 mmol/L (3.5-5.1); Sodium 141 mmol/L (136-145)
== END 2024-07-24 14:03 | disposition home or self-care (01) ==
LOC: LBO 14:12
PROVIDERS: PCP Naturopath; Visit Provider Obstetrics & Gynecology Gynecology
DX: Z01.818 Encounter for other preprocedural examination (principal)
CPT/HCPCS: 36415; 80048; 85027; 86850; 86900; 86901; 84702

== ENCOUNTER 2024-07-29 07:39 | Day surgery (SDC) | payer BC, SELFPAY ==
[2024-07-29] VITALS (23 sets, daily range): BP systolic 103–135; BP diastolic 50–81; PULSE 55–76; RESP 13–20; TEMP 36.3–36.7; O2SAT 93–100; BMI 30.6
--- NOTE | 2024-07-29 08:33 | ANES.PREOP_ITS ---
General Info Date of Service Date Performed: 07/29/24 Height: 5 ft 2.5 in Weight: 77.1 kg Body Mass Index (BMI): 30.6 Surgical Procedure: Operation Date: 07/29/24 08:40 Proposed Procedure Side Surgeon p Oophorectomy Laparoscopic Left Krista Mallory MD Meds Allergies and Home Medications Allergies Allergy/AdvReac Type Severity Reaction Status Date / Time amoxicillin Allergy Severe I makes Verified 07/29/24 08:08 any virus I have stronger flavoxate (From Urispas) Allergy Severe Hives, SOB Verified 07/29/24 08:08 Home Medication ?Medication ?Instructions ?Recorded albuterol sulfate 90 mcg/actuation 2 puff inhalation BID PRN 08/29/21 aerosol inhaler ascorbic acid (vitamin C) 500 mg 500 mg PO DAILY 09/01/21 capsule cholecalciferol (vitamin D3) 125 125 mcg PO DAILY 09/01/21 mcg (5,000 unit) capsule vitamin K2 45 mcg capsule 45 mcg PO DAILY 09/01/21 ibuprofen 200 mg tablet 200 mg PO Q6H PRN 03/14/22 hydroxyzine HCl 50 mg tablet 50 mg PO DAILY 03/26/23 zinc acetate 50 mg (zinc) capsule 30 mg PO DAILY 03/26/23 (Galzin) Advair HFA 115 mcg-21 2 puff inhalation BID 30 days #12 06/12/23 mcg/actuation aerosol inhaler grams (fluticasone propion-salmeterol) acetylcysteine 600 mg capsule (NAC) 500 mg PO DAILY 08/07/23 lions ihsan PO 08/07/23 magnesium L-threonate 48 mg 2,144 mg PO DAILY 08/07/23 magnesium (667 mg) capsule multivitamin (Daily Multi-Vitamin 1 tab PO DAILY 08/07/23 tablet) omega-3 fatty acids 1,250 mg 1,250 mg PO DAILY 08/07/23 capsule vitamins B1 2.5 mg-B2 2.5 1 tab PO DAILY 08/07/23 mg-niacin 5 mg-B12 100 mcg-protease tablet (B-Complex With B-12) onabotulinumtoxinA 200 unit unit IM Chronic migraines 06/24/24 solution for injection (Botox) thyroid (pork) 15 mg tablet (MANAGEMENT INFORMATION SYSTEMS DIRECTOR 15 mg PO DAILY 06/24/24 Thyroid) tramadol 50 mg tablet 50 mg PO Q6H PRN pain #14 tabs 07/29/24 Current Visit Medications: Current Medications Generic Name Dose Route Start Last Admin Trade Name Devi PRN Reason Stop Dose Admin Ringer's Solution 1,000 mls @ 80 mls/hr 07/29/24 07:00 IV 08/28/24 06:59 INFUSION CLAU IV Miscellaneous Supplies 1 each 07/29/24 06:00 Iv Access IV 07/29/24 23:59 DIRECTED CLAU Sodium Chloride 0 ml 07/29/24 06:00 Normal Saline Flush 10 Ml Syr IV 07/29/24 23:59 PRN PRN Sodium Chloride 0 ml 07/29/24 06:00 Normal Saline 10 Ml Vial IJ 07/29/24 23:59 DIRECTED PRN Sterile Water 0 ml 07/29/24 06:00 Water,Injection,Sterile 10 Ml Vial IJ 07/29/24 23:59 DIRECTED PRN PFSH Active Problems Active Problems: Problem Status Onset Code Pre-op evaluation Acute Z01.818 Pulmonary nodules Acute R91.8 Asthma Chronic J45.909 Skin change Acute R23.9 Encounter for monitoring postmenopausal estrogen replacement therapy Acute Z51.81, Z79.890 Vasomotor symptoms due to menopause Acute N95.1 EDINSON (obstructive sleep apnea) Chronic G47.33 Normal colonoscopy Acute Painful bladder spasm Acute R30.1 Chronic pelvic pain syndrome in female Acute R10.2, G89.29 Iron deficiency anemia Resolved D50.9 Medical History Medical History Angelita-Danlos syndrome Allergies ADHD Hypothyroidism Migraine Hx of head injury Endometriosis Eczema Depression Anemia GERD (gastroesophageal reflux disease) Lung nodule Hormone replacement therapy Rx by Dr. Velasquez. Hot flashes 07/2020. Solitary ovary remained after LAVH. Perimenopausal Palpitations Daytime somnolence Fibromyalgia longstanding. manifests as N/V. Chronic interstitial cystitis Irritable bowel syndrome with diarrhea Chronic sinusitis Obstructive sleep apnea syndrome in adult 01/2020 settings scanned into EMR with [facility] records. 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 Onset 2017. Medical History Comments:: Per pt. states her and her mom has hx of severe PONV Surgical History Surgical History History of colonoscopy (~08/2021) H/O rhinoplasty H/O cystoscopy 1997,1998,1999 H/O breast biopsy 1999. Benign. History of delivery 1997,1996. H/O laparoscopy 1998, Diagnostic for endometriosis S/P laparoscopic hysterectomy 07/13/20. bilateral salpingectomy, R oophorectomy, uterosacral vaginal vault suspension. Tobacco Smoking/Tobacco Use Status: Former Tobacco Use Alcohol Alcohol Intake: former Substance Use Substance use type: does not use Details: 07/29/24 0500: Smoked marijuana Prental History History 2 Para 2 Hx # Term Pregnancies 2 Multiple births Hx # Pregnancies Ectopic pregnancies AB induced Hx Number of Living Children 2 AB spontaneous Vital Signs and Lab Results Vital Signs Most Recent Vital Signs in EMR: Most Recent Vital Signs Temp Pulse Resp BP Pulse Ox 36.7 C 76 16 118/72 96 07/29/24 07:50 07/29/24 07:50 07/29/24 07:50 07/29/24 07:50 07/29/24 07:50 Lab Results Blood Type / Crossmatch: Antibody Screen NEGATIVE 07/24/24 Complete Blood Count: White Blood Count 9.49 10^3/uL (4.4-10.8) 07/24/24 09:25 Red Blood Count 4.45 10^6/uL (3.93-5.22) 07/24/24 09:25 Hemoglobin 13.6 g/dL (11.2-15.7) 07/24/24 09:25 Hematocrit 41.5 % (36.0-46.0) 07/24/24 09:25 Platelet Count 283 10^3/uL (130-400) 07/24/24 09:25 Complete Metabolic Panel: Sodium 141 mmol/L (136-145) 07/24/24 09:25 Potassium 4.1 mmol/L (3.5-5.1) 07/24/24 09:25 Chloride 102 mmol/L (98-107) 07/24/24 09:25 Carbon Dioxide 29.5 mmol/L (21.0-32.0) 07/24/24 09:25 BUN 14 mg/dL (7-18) 07/24/24 09:25 Creatinine 0.8 mg/dL (0.55-1.02) 07/24/24 09:25 Est GFR (CKD-EPI 2020) 88.60 (mL/min/1.73m2) 07/24/24 09:25 Calcium 9.6 mg/dL (8.5-10.1) 07/24/24 09:25 Glucose 87 mg/dL (74-106) 07/24/24 09:25 Liver Function Panel: No Data to Display Coagulation Panel: No Data to Display Cardiac Panel: No Data to Display Arterial Blood Gas: No Data to Display Venous Blood Gas: No Data to Display Pancreas Panel: No Data to Display Thyroid Panel: No Data to Display Infectious Disease: No Data to Display Blood Cultures: No Data to Display Toxicology Panel: No Data to Display Panel: Beta HCG, Quantitative 5 mIU/mL (1-3) H 07/24/24 09:25 Imaging and Studies Imaging and Studies Study information below may be from another EMR and interpreted by another provider. Please see original notes in EMR for more complete details. Pulmonary Function Summary: Date of service: 07/18/23 Time of Service: 10:15 Pulmonary Function Test Result Indications: Asthma Interpretation Spirometry: There is no airflow limitation. There was a 24% decrease in FEV1 with administration of 1 mg/mL methacholine. Lung Volumes: Normal lung volumes Diffusion Capacity: Normal diffusion Airway Pressure: Normal airways resistance Impression Normal baseline pulmonary function with a positive methacholine challenge Clinical Correlation therefore is recommended. Anesthesia Assessment and Plan Anesthesia History Personal History: PONV Family History: No Family History of Anesthesia Complications Exercise Tolerance Exercise Tolerance: Metabolic Equivalents>4 Pertinent Negatives Pertinent Negatives: No Major Cardiovascular Symptoms or Complaints, No Major Pulmonary Symptoms or Complaints and No History of CVA/TIA Cardiac & Pulmonary Exam Cardiac Exam: Normal S1/S2 Heart Sounds Pulmonary Exam: Clear Bilateral Breath Sounds Implantable Cardiac Device Does patient have a Pacemaker or an ICD?: No Airway Exam Known Difficult Airway: No Mallampati Class: 2 Mouth Opening: Normal (> 3cm) Thyromental Distance: Greater than 3 cm Neck Range of Motion: Full ROM Neck Circumference: Normal Teeth Condition: Normal Dentition and Loose or Chipped (chipped crowns lower back right) ASA Classification ASA Score: ASA 2 Emergency Case?: No NPO Status NPO Status: NPO Clears >2 hours, Solids >8 hours Status Status: History of Hysterectomy Anesthesia Plan Resuscitation Status: Full Code Anesthesia Technique: General Anesthesia Airway Planned: Endotracheal Tube Monitors Used: Standard Monitors Preoperative Comments:: High anxiety related to PONV after previous surgeries.
[2024-07-29] MEDS: Lactated Ringers 1,000 ML 80 ML IV (08:49)
--- NOTE | 2024-07-29 09:50 | OVAR_PTH ---
PATIENT: Ivelisse Roberts LOC: [facility] U#:[id number] AGE/SX: 54/F ROOM: RE07/29/[address]: Krista Mallory : 1970 BED: DIS: 07/29/2024 SPEC #: [id number] RECD: 07/29/24 17:19 STATUS: KRISTIE REQ #: [id number] EMMANUEL: 07/29/24 09:[address]: Krista Mallory DEPT: Surgical Specimen RECD BY: Yoly Leong ENTERED: 07/29/24 17:20 SP TYPE: OSIRISR BESSIE DR: Brian Melendez Tissues: 1 - OVARY NOT TUMOR W OR W/O TUBES Procedures: GROSS AND MICRO LEVEL 4 Comments: [id number]
[2024-07-29] MEDS: Bupivacaine 0.25% Pres-Free 30 ML VIAL (09:53)
--- NOTE | 2024-07-29 10:22 | W.PM.OP ---
Operative Note Operative Note PRE-OP DIAGNOSIS: pelvic pain POST-OP DIAGNOSIS: same PROCEDURE: laparoscopic left oophorectomy SURGEON: Krista Mallory ASSISTING SURGEON: Corine Ramos ANESTHESIA TYPE: General LMA/ETT Refer to Anesthesia Record ESTIMATED BLOOD LOSS: 0 PATHOLOGY: other (L fallopian tube) COMPLICATIONS: None Patient was transported to: PACU Patient's condition: stable Indications: 54yo female who presents for a preop exam in anticipation of a laparoscopic L oophorectomy. Since her previous [facility] visit 08/07/23 she has been troubled with episodic pelvic discomfort with periodic sharp right lower quadrant pain and mild bloating. Patient reports a first cousin recently diagnosed with ovarian cancer.and since that time she has become increasingly concerned about ovarian CA. Findings: Normal appearing L ovary with filmy adhesions covering the body of the cervix and adhering it to the L pelvic side wall. A knuckle of omentumn was adherent to the abdominal wall directly cephalad to the umbilical port. Normal R pelvis. Normal upper abdomen. Procedure Description: Patient was taken to the operating room where she was placed in the dorsal supine position and endotracheal anesthesia was administered without difficulty.?A metcalf catheter was inserted to gravity drainage? SCDs were placed.?She was prepped and draped in the usual fashion and a surgical timeout was performed.? The umbilical fold was infiltrated with 0.25% Marcaine and a 12 mm vertical skin incision was made in the umbilicus. The skin was tented up using penetrating towel clips and through this incision a Veres needle was inserted while connected to carbon dioxide as the distention medium. Intra-abdominal placement was confirmed by drop in the intra-abdominal pressure. A pneumoperitoneum was established and the Veres needle removed and a 12 mm Visiport trocar was introduced into the abdomen under direct visualization.? The patient was then placed in trendelenburg position and approximately 6 cm diagonal to the right and left of the umbilical incision the skin was transilluminated and the subcutaneous tissue infiltrated with quarter percent Marcaine and then incised with a scalpel.? Under direct visualization two 5 mm ports were placed in the right and left lower quadrants respectively.? The abdomen was inspected with the above-noted findings. A LigaSure electrocautery device was used to clamp cauterize and transect the peritoneal adhesions over covering the left ovary. Once the ovary was visualized and mobile the left infundibulopelvic ligament was clamped, cauterized in several sequential locations and then transected. The pedicle was noted to be hemostatic. The ovary was placed in a collection bag and delivered through the umbilical skin incision.? The abdomen was reinspected and the left infundibulopelvic ligament pedicle was noted to be hemostatic. Patient was repositioned in the dorsal supine position and both 5 mm ports were removed under direct visualization.? Patient was repositioned in the dorsal supine position and both 5 mm ports were removed under direct visualization.? The pneumoperitoneum was deflated and the umbilical port was removed. The fascia of the umbilical port incision was reapproximated with 0-Vicryl suture and the skin of all incisions was reapproximated with subcuticular suture of 4-0 Monocryl. The trocar sites were skin adhesive was then applied to the incisions and steristrips and Bandaids used to cover the incisions. The metcalf catheter was removed and the patient was awakened and extubated. She was transported to recovery area in stable condition. Date of Procedure: 07/29/24
--- NOTE | 2024-07-29 10:40 | W.PM.DSUDISC ---
Date of service: 07/29/24 Discharge Plan Disposition Patient Disposition: Home Discharge Details Reason For Visit: Laparoscopic left oophorectomy Attending Provider: Krista Mallory Primary Care Provider: Brian Melendez Home Meds and New Rx's Prescriptions: No Action cholecalciferol (vitamin D3) 125 mcg (5,000 unit) capsule 125 mcg PO DAILY ascorbic acid (vitamin C) 500 mg capsule 500 mg PO DAILY vitamin K2 45 mcg capsule 45 mcg PO DAILY hydroxyzine HCl 50 mg tablet 50 mg PO DAILY Galzin 50 mg (zinc) capsule 30 mg PO DAILY fluticasone propion-salmeterol [Advair HFA] 115-21 mcg/actuation HFA aerosol inhaler 2 puff inhalation BID 30 Days Qty: 12 6RF omega-3 fatty acids 1,250 mg capsule 1,250 mg PO DAILY B-Complex With B-12 2.5 mg-2.5 mg- 5 mg-100 mcg tablet 1 tab PO DAILY lions ihsan PO acetylcysteine [NAC] 600 mg capsule 500 mg PO DAILY magnesium L-threonate 48 mg magnesium (667 mg) capsule 2,144 mg PO DAILY multivitamin [Daily Multi-Vitamin] Tablet 1 tab PO DAILY Botox 200 unit recon soln IM thyroid (pork) [[employer] Thyroid] 15 mg tablet 15 mg PO DAILY albuterol sulfate 90 mcg/actuation HFA aerosol inhaler 2 puff inhalation BID PRN ibuprofen 200 mg tablet 200 mg PO Q6H PRN tramadol 50 mg tablet 50 mg PO Q6H MDD 4 PRN (Reason: pain) Qty: 14 0RF Discharge Instructions Additional Instructions: You may remove the bandaid and replace it with a fresh bandaid after showering. Leave steri-strips in place until you return for your postop visit. If they fall of that is OK, just cover them with bandaids. There is a prescription for Tramadol 50mg every 6 hours as needed. Use it amol with Ibuprofen and Acetaminophen ever 6hours as needed. Keep your postop appointment with Dr. Mallory in 1-2 weeks. Stand Alone Forms: Anesthesia Discharge Inst., Anes.Sugammadex Interaction, [facility] Post Holistic Specialist SurgeryW/Incision, Scopolamine Skin Patch, Edwina Holden ([facility]) Referrals: Krista Mallory MD [ [facility] STAFF PHYSICIAN] - 08/10/24 9:00 am Activity:: Activity as Tolerated Remove Dressings/Wound Care:: 24 hours Shower/Bathe:: 24 hours Diet:: As Tolerated Discharge Orders Discharge Orders: Discharge Order (Routine); Ordered 07/29/24 Ordered By: Krista Mallory DS: Diagnosis Discharge Diagnosis (1) Chronic pelvic pain syndrome in female: Status: Acute (2) S/P left oophorectomy: Status: Acute Asessment and Plan: laparoscopic oophorectomy
[2024-07-29] MEDS: fentaNYL 100 MCG/2 ML VIAL IVP (10:50)
--- NOTE | 2024-07-29 12:33 | W.ANESPOSTOP ---
Postoperative Evaluation Date, Time and Location Date Performed: 07/29/24 Time Performed: 11:56 Patient Location: Day Surgery Unit Vital Signs Most Recent Imported Vital Signs: Most Recent Vital Signs Temp Pulse Resp BP Pulse Ox 36.4 C L 56 L 16 116/70 97 07/29/24 11:53 07/29/24 11:53 07/29/24 11:53 07/29/24 11:53 07/29/24 11:53 Pain Score Most Recent Pain Score: Most Recent Pain Score Pain Level 5 07/29/24 11:53 Assessment Mental Status: Awake (Alert & Oriented to Patient Baseline) Airway and Respiratory Function: Patent airway with normal (patient baseline) respiratory exam Cardiovascular Function: Hemodynamically Stable Hydration Status: Adequately Hydrated Nausea & Vomiting: No Nausea or Vomiting Pain: Pain is tolerable per patient Peripheral Nerve Block: Patient did not receive a nerve block
== END 2024-07-29 12:50 | disposition home or self-care (01) ==
PROVIDERS: PCP Naturopath; Visit Provider Obstetrics & Gynecology Gynecology
PROC: (CPT 58661; principal; 2024-07-29 08:30)
DX: R10.2 Pelvic and perineal pain (principal); G89.29 Other chronic pain; Z80.41 Family history of malignant neoplasm of ovary; N73.6 Female pelvic peritoneal adhesions (postinfective); N83.02 Follicular cyst of left ovary
CPT/HCPCS: 58661; 88305; J0665; J1100; J1805; J1885; J2250; J2405; J2469; J2704; J3010